=== PATIENT | male | born 1940 | race Two or more races ===

== ENCOUNTER 2020-01-20 09:54 | Outpatient (CLI) | payer OTHER | END 2020-01-20 10:05 | disposition home or self-care (01) | LOC: RAD 09:54 | PROVIDERS: ATTEND Orthopaedic Surgery | DX: M25.531 Pain in right wrist (principal); M79.641 Pain in right hand; M19.011 Primary osteoarthritis, right shoulder; M19.012 Primary osteoarthritis, left shoulder ==